=== PATIENT | female | born 1955 | race Caucasian/White ===

== ENCOUNTER 2024-02-18 15:06 | Emergency (ER) | payer MEDICARE, OTHER ==
[2024-02-18 15:23] VITALS: BP 151/75; PULSE 84
[2024-02-18 15:30] LABS: APPEARANCE,URINE CLOUDY (CLEAR); COLOR,URINE POC AMBER (YELLOW); PH,URINE 6.5 (5.0-8.0)
[2024-02-18 15:31] LABS: BILIRUBIN,URINE POC SMALL (NEGATIVE); GLUCOSE,URINE POC NEGATIVE (NEGATIVE); KETONES,URINE POC TRACE (NEGATIVE); LEUKOCYTE ESTERASE,URINE POC LARGE (NEGATIVE); NITRITE,URINE POC NEGATIVE (NEGATIVE); OCCULT BLOOD,URINE POC LARGE (NEGATIVE); PROTEIN,URINE POC 100 (NEGATIVE); UROBILINOGEN,URINE POC 0.2 (0.2)
[2024-02-18] MEDS: Take Home: Nitrofurantoin Monohydrate/Macrocrystalline 100 MG, 6 Cap Pack PO ONE (15:34)
[2024-02-18 19:39] LABS: RBC,URINE POC 20-30 /HPF (NOT SEEN); SQUAMOUS EPITHELIAL CELLS,UR P RARE /HPF (NOT SEEN); WBC,URINE POC >100 /HPF (NOT SEEN)
[2024-02-18 19:40] LABS: BACTERIA,URINE POC MODERATE (NOT SEEN); MUCUS,URINE POC NOT SEEN (NOT SEEN); RENAL EPITHELIAL CELLS,URINE P OCCASIONAL (NOT SEEN)
== END 2024-02-18 15:48 | disposition home or self-care (01) ==
LOC: VM.ED 15:06
DX: N39.0 Urinary tract infection, site not specified (principal); E78.00 Pure hypercholesterolemia, unspecified; Z88.1 Allergy status to other antibiotic agents; Z79.899 Other long term (current) drug therapy
CPT/HCPCS: 81000; 87086; 87088; 87186; 99283; A9270

== ENCOUNTER 2025-04-08 09:53 | Day surgery (SDC) | payer MEDICARE, OTHER ==
[2025-04-08] MEDS: Lactated Ringers 1,000 ML IV SCH (10:16)
[2025-04-08] MEDS ORDERED: Propofol 200 MG/20 ML SDV ONE (10:42)
[2025-04-08] MEDS ORDERED: fentaNYL 100 MCG/2 ML SDV ONE (10:42)
[2025-04-08 13:08] VITALS: PULSE 66
[2025-04-08 13:21] VITALS: BP 132/71
== END 2025-04-08 13:41 | disposition home or self-care (01) ==
LOC: VM.SDS 09:53
PROVIDERS: ATTEND Surgery
DX: Z12.11 Encounter for screening for malignant neoplasm of colon (principal); I10 Essential (primary) hypertension; Z88.8 Allergy status to other drugs, medicaments and biological substances; Z79.899 Other long term (current) drug therapy; Z87.891 Personal history of nicotine dependence
CPT/HCPCS: 00812; J2704; J3010; J7120